=== PATIENT | male | born 1980 | race American Indian/Alaskan Native ===

== ENCOUNTER 2016-08-11 14:28 | Emergency (ER) | payer MEDICAID ==
[2016-08-11 15:12] VITALS: BP 134/81
[2016-08-11 15:30] LABS: Basophils % (Auto) 1.1 % (0.0-1.8); Eosinophils % (Auto) 9.3 % (0.0-4.3); Hematocrit 39.3 % (35.5-45.6); Hemoglobin 12.8 gm/dl (11.8-15.2); Mean Corpuscular HGB Conc 32 % (32-34); Mean Corpuscular Hemoglobin 28 pg (28-32); Mean Corpuscular Volume 86 fl (84-94); Platelet Count 239 K/mm3 (140-440); Red Blood Count 4.59 M/mm3 (3.65-5.03); Red Cell Distribution Width 14.3 % (13.2-15.2); White Blood Count 4.2 K/mm3 (4.5-11.0)
[2016-08-11 15:40] LABS: Anion Gap 17 mmol/L; BUN/Creatinine Ratio 9.16; Blood Urea Nitrogen 11 mg/dL (9-20); Calcium 8.5 mg/dL (8.4-10.2); Carbon Dioxide 22 mmol/L (22-30); Chloride 99.7 mmol/L (98-107); Glucose 93 mg/dL (75-100); Potassium 4.1 mmol/L (3.6-5.0); Sodium 135 mmol/L (137-145)
--- NOTE | 2016-08-15 16:02 | ED Elopement Review ---
ED Pt Elopement review - Results review Lab results: Laboratory Tests 08/11/16 08/11/16 08/11/16 15:13 15:13 15:13 WBC 4.2 L RBC 4.59 Hgb 12.8 Hct 39.3 MCV 86 MCH 28 MCHC 32 RDW 14.3 Plt Count 239 Lymph % (Auto) 21.5 [place] % (Auto) 10.2 H Eos % (Auto) 9.3 H Baso % (Auto) 1.1 Lymph # 0.9 L [place] # 0.4 Eos # 0.4 Baso # 0.0 Seg Neutrophils % 57.9 Seg Neutrophils # 2.5 Sodium 135 L Potassium 4.1 Chloride 99.7 Carbon Dioxide 22 Anion Gap 17 BUN 11 Creatinine 1.2 Estimated GFR > 60 BUN/Creatinine Ratio 9.16 Glucose 93 Calcium 8.5 Plasma/Serum Alcohol < 0.01 - Call Back decision Pt Call Back Decision: No action required
== END 2016-08-11 20:05 | disposition left against medical advice (07) ==
LOC: ED 14:28
DX: R21 Rash and other nonspecific skin eruption (principal); F25.9 Schizoaffective disorder, unspecified; F17.200 Nicotine dependence, unspecified, uncomplicated; Z91.02 Food additives allergy status; Z53.21 Procedure and treatment not carried out due to patient leaving prior to being seen by health care provider
CPT/HCPCS: 36415; 80048; 85025; G0480; 80320

== ENCOUNTER 2016-08-12 05:14 | Emergency (ER) | payer MEDICAID ==
[2016-08-12 07:51] LABS: Basophils % (Auto) 1.1 % (0.0-1.8); Eosinophils % (Auto) 9.7 % (0.0-4.3); Hematocrit 38.6 % (35.5-45.6); Hemoglobin 12.6 gm/dl (11.8-15.2); Mean Corpuscular HGB Conc 33 % (32-34); Mean Corpuscular Hemoglobin 28 pg (28-32); Mean Corpuscular Volume 86 fl (84-94); Platelet Count 229 K/mm3 (140-440); Red Blood Count 4.47 M/mm3 (3.65-5.03); Red Cell Distribution Width 14.5 % (13.2-15.2); White Blood Count 5.4 K/mm3 (4.5-11.0)
[2016-08-12 08:03] LABS: Anion Gap 15 mmol/L; Blood Urea Nitrogen 13 mg/dL (9-20); Calcium 8.8 mg/dL (8.4-10.2); Carbon Dioxide 26 mmol/L (22-30); Chloride 102.7 mmol/L (98-107); Glucose 100 mg/dL (75-100); Potassium 3.9 mmol/L (3.6-5.0); Sodium 140 mmol/L (137-145)
--- NOTE | 2016-08-12 11:29 | Emergency Department Report ---
ED General Adult HPI - General Chief complaint: Psych Stated complaint: MH EVAL Time Seen by Provider: 08/12/16 11:28 Source: patient Mode of arrival: Ambulatory Limitations: No Limitations - Related Data Home Medications Medication Instructions Recorded Confirmed Last Taken Citalopram Hydrobromide [celeXA] 20 mg PO DAILY 07/06/14 07/06/14 Unknown Olanzapine [ZyPREXA] 30 mg PO QHS 07/06/14 07/06/14 Unknown hydrOXYzine PAMOATE [Vistaril] 25 mg PO TID 07/06/14 07/06/14 Unknown Allergies Allergy/AdvReac Type Severity Reaction Status Date / Time cheese Allergy Vomiting Uncoded 08/11/16 15:12 ED Review of Systems ROS: Stated complaint: MH EVAL Other details as noted in HPI ED Past Medical Hx - Past Medical History Hx Psychiatric Treatment: Yes (schizo-affective disorder) Hx HIV: Yes (pt unsure- told he has HIV but not sure.) - Surgical History Past Surgical History?: No - Social History Smoking Status: Current Every Day Smoker Substance Use Type: None - Medications Home Medications: Home Medications Medication Instructions Recorded Confirmed Last Taken Type Citalopram Hydrobromide [celeXA] 20 mg PO DAILY 07/06/14 07/06/14 Unknown History Olanzapine [ZyPREXA] 30 mg PO QHS 07/06/14 07/06/14 Unknown History hydrOXYzine PAMOATE [Vistaril] 25 mg PO TID 07/06/14 07/06/14 Unknown History ED Physical Exam - General Limitations: No Limitations ED Course Vital Signs 08/12/16 07:16 Temperature 97.7 F Pulse Rate 87 Respiratory 16 Rate Blood Pressure 111/70 O2 Sat by Pulse 97 Oximetry ED Medical Decision Making - Lab Data Result diagrams: 08/12/16 07:23 08/12/16 07:23 Critical care attestation.: If time is entered above; I have spent that time in minutes in the direct care of this critically ill patient, excluding procedure time. ED Disposition Condition: Stable Referrals: PRIMARY CARE, [Primary Care Provider] - 3-5 Days
[2016-08-12] MEDS ORDERED: NACL 0.9% 1000 ML 1,000 ML IV ONE (14:22)
--- NOTE | 2016-08-12 14:36 | Emergency Department Report ---
HPI - General Chief Complaint: Psych Time Seen by Provider: 08/12/16 11:28 - HPI HPI: This is a 35-year-old Afro-[place] male presents to the emergency Department through triage with the complaint of needing a refill of his psychiatric medications. He allegedly told the triage nurse that he was having auditory hallucinations but denies any suicidal or homicidal ideations. However he was falling asleep mostly during triage. When I saw the patient back in the main emergency department he is extremely sleepy. He has arousable to verbal and tactile stimuli but can only concentrate for a few words before he falls back asleep and therefore is a poor historian. He is mentioning that he needs a cream for his feet. He was able to tell me that he lives in a nearby jail and has a history of schizoaffective disorder. ED Past Medical Hx - Past Medical History Hx Psychiatric Treatment: Yes (schizo-affective disorder) Hx HIV: Yes (pt unsure- told he has HIV but not sure.) - Surgical History Past Surgical History?: No - Social History Smoking Status: Current Every Day Smoker Substance Use Type: None - Medications Home Medications: Home Medications Medication Instructions Recorded Confirmed Last Taken Type Citalopram Hydrobromide [celeXA] 20 mg PO DAILY 07/06/14 07/06/14 Unknown History Olanzapine [ZyPREXA] 30 mg PO QHS 07/06/14 07/06/14 Unknown History hydrOXYzine PAMOATE [Vistaril] 25 mg PO TID 07/06/14 07/06/14 Unknown History ED Review of Systems ROS: Stated complaint: EVAL Other details as noted in HPI Comment: All other systems reviewed and negative Constitutional: malaise. denies: chills, fever Eyes: denies: eye pain, eye discharge, vision change ENT: denies: ear pain, throat pain Respiratory: denies: cough, shortness of breath, wheezing Cardiovascular: denies: chest pain, palpitations Gastrointestinal: denies: abdominal pain, nausea, diarrhea Genitourinary: denies: urgency, dysuria Musculoskeletal: denies: back pain, joint swelling, arthralgia Skin: denies: rash, lesions Neurological: denies: headache, numbness Psychiatric: auditory hallucinations. denies: suicidal thoughts Physical Exam - Physical Exam Vital Signs: Vital Signs 08/12/16 07:16 Temperature 97.7 F Pulse Rate 87 Respiratory 16 Rate Blood Pressure 111/70 O2 Sat by Pulse 97 Oximetry Physical Exam: GENERAL: Patient is a disheveled appearance. HEENT: Normocephalic. Atraumatic. Extraocular motions are intact. Patient has moist mucous membranes. Pupils equal reactive to light bilaterally. NECK: Supple. Trachea is midline. CHEST/LUNGS: Clear to auscultation. There is no respiratory distress noted. HEART/CARDIOVASCULAR: Regular. There is no tachycardia. There is no gallop rub or murmur. ABDOMEN: Abdomen is soft, nontender. Patient has normal bowel sounds. There is no abdominal distention. SKIN: The patient has some healing abrasions to the dorsum of his feet that appear consistent with the skin rubbing against his shoes and socks. There is no obvious cellulitis, signs of infection, bleeding, weeping or drainage. NEURO: The patient is very fatigued. If he is constantly stimulated verbally or tactile, and the patient will answer questions and the answers he gives appear appropriate but he cannot go more than a few words without falling asleep again. MUSCULOSKELETAL: There is no tenderness or deformity. There is no evidence of acute injury. ED Course Vital Signs 08/12/16 07:16 Temperature 97.7 F Pulse Rate 87 Respiratory 16 Rate Blood Pressure 111/70 O2 Sat by Pulse 97 Oximetry - Reevaluation(s) Reevaluation #1: I went to reevaluate the patient and he is much more awake and alert. I do not know asked why he was so fatigued at first but now he is awake and asking for food. He is AAO 3. CT of the head was canceled as he does not want it done and appears appropriate. He is agreed to allow IV fluid resuscitation and we will wait for his lab results. 08/12/16 15:41 Reevaluation #2: Patient was able to give more information at this point about the reason he came in to the emergency department. With his history of schizoaffective disorder he is been having auditory and visual hallucinations. He says that the car towards that he years are "driving me crazy" and that it is driving him into a rage. He also says that when he sees car headlights that they appear to be monsters to him that are coming to attack him. The patient does not have any suicidal or homicidal ideations, the patient is not been taking his medications and does not appear therapeutic at believe the patient would benefit from inpatient psychiatric treatment for stabilization of his psychosis. 08/12/16 15:51 ED Medical Decision Making - Lab Data Result diagrams: 08/12/16 07:23 08/12/16 07:23 - Medical Decision Making 35-year-old male who presents to the emergency department for a mental health evaluation. Through triage at appear that the patient was just looking for a refill of his medication. However during my history and physical the patient was barely able to keep his eyes open. This concerned me as to some type of altered mental status. Further labs are ordered and a CT of the head was ordered as well. Blood alcohol level is negative. An IV was placed and IV fluid resuscitation was started. Shortly after this, the patient became more awake and alert. CT of the head was then canceled. So far the labs are unremarkable and do not show any signs of infection, electrolyte abnormalities, renal insufficiency or glucose abnormalities. We are currently waiting for the urine sample so it can be tested for urine drug screen and urinary tract infection. The patient says that he lives in a jail but that also says that he has not eaten in the past 5 days. He says that this jail exists where people just pay rent but there is no other further support. The crisis therapist was able to talk with the patient as well and the patient became more forthcoming and says that he has been having increased auditory and visual hallucinations secondary to medication noncompliance. The auditory hallucinations are causing anger issues as the sounds of the car horns are bothering him. The visual hallucinations are headlightes that appear to be monster like figures that can attack him. The patient does not have any suicidal or homicidal ideations, I still feel that the patient might be a candidate to be a 1013. First of all, the patient says that he has not been eating and past 5 days and therefore he is not feeling all the activities of daily living that are necessary. Secondly, patient is having these hallucinations that sound like acute psychosis. The patient definitely appears more awake and has stable vitals. I feel that he is medically clear for psychiatric placement. - Differential Diagnosis schizophrenia, schizoaffective disorder, bipolar disorder, substance abuse Critical Care Time: No Critical care attestation.: If time is entered above; I have spent that time in minutes in the direct care of this critically ill patient, excluding procedure time. ED Disposition Clinical Impression: History of schizoaffective disorder, Auditory hallucinations, Visual hallucinations Psychosis Qualifiers: Psychosis type: unspecified psychosis type Qualified Code(s): F29 - Unspecified psychosis not due to a substance or known physiological condition Disposition: DC/TX PSY HOSP/PSY UNIT Is pt being admited?: No Condition: Stable Instructions: Schizoaffective Disorder (ED) Additional Instructions: Please follow-up with your psychiatrist as previously scheduled. Return to the emergency department with any worsening of her symptoms or any acute distress. Referrals: PRIMARY CARE, [Primary Care Provider] - 3-5 Days
[2016-08-12 15:54] LABS: Creatine Kinase 314 units/L (55-170)
[2016-08-12 16:36] LABS: Urine Drugs of Abuse Note Disclamer
[2016-08-12 16:47] LABS: Bilirubin,Urine NEG (Negative); Blood,Urine NEG (Negative); Ketones,Urine NEG (Negative); Leukocyte Esterase,Urine NEG (Negative); Mucus,Urine FEW /HPF; Nitrite,Urine NEG (Negative); Protein,Urine <15 mg/dL mg/dL (Negative); RBC,Urine < 1.0 /HPF (0.0-6.0); Urobilinogen,Urine < 2.0 mg/dL (<2.0); WBC,Urine < 1.0 /HPF (0.0-6.0)
[2016-08-13] MEDS ORDERED: TYLENOL ONE (06:34)
--- NOTE | 2016-08-13 13:57 | Consultation ---
History of Present Illness - Reason for Consult Consult date: 08/13/16 Reason for consult: psychiatric evaluation, psychosis - Chief Complaint Chief complaint: "What is happening" The record indicates a history of schizoaffective disorder. The following was recorded by the ER physician: He says that the car towards that he years are "driving me crazy" and that it is driving him into a rage. He also says that when he sees car headlights that they appear to be monsters to him that are coming to attack him. The patient does not have any suicidal or homicidal ideations, the patient has not been taking his medications and does not appear therapeutic. The patient would benefit from inpatient psychiatric treatment for stabilization of his psychosis. At the time of interview I was unable to obtain psychiatric history or current symptoms. He was sleeping and awoke only to ask what is happening and where he will go. Medications and Allergies Allergies Allergy/AdvReac Type Severity Reaction Status Date / Time cheese Allergy Vomiting Uncoded 08/11/16 15:12 Home Medications Medication Instructions Recorded Confirmed Last Taken Type Citalopram Hydrobromide [celeXA] 20 mg PO DAILY 07/06/14 07/06/14 Unknown History Olanzapine [ZyPREXA] 30 mg PO QHS 07/06/14 07/06/14 Unknown History hydrOXYzine PAMOATE [Vistaril] 25 mg PO TID 07/06/14 07/06/14 Unknown History Past psychiatric history - Past Medical History Past Medical History: other (questionable HIV) - past Psychiatric treatment and history psychiatric treatment history: schizoaffective disorder, bipolar type - Social History Social history: other (drug screen positive for cocaine. Lives in senior living) Mental Status Exam - Vital signs Last Vital Signs Temp 98.1 F 08/13/16 08:55 Pulse 71 08/13/16 08:55 Resp 16 08/13/16 08:55 BP 123/72 08/13/16 08:55 Pulse Ox 96 08/13/16 08:55 - Exam Narrative exam: unable to assess thought process , memory, or sleep. His meal tray is empty ( appears to be eaten). Orientation: place, person Mood: other (unable to assess) Thought content: other (unable to assess) Perceptions: visual (per the record), auditory (per the record) Speech: minimal response Concentration: other (sleeping) Level of consciousness: other (sleeping) Results Result Diagrams: 08/12/16 07:23 08/12/16 07:23 Abnormal lab results 08/12/16 08/12/16 Range/Units 15:25 15:25 Total Creatine Kinase 314 H (55-170) units/L Salicylates < 0.3 L (2.8-20.0) mg/dL All other labs normal. Assessment and Plan Assessment and plan: Impression: Possible psychosis Non compliance with medication Schizoaffective disorder, bipolar type by history Cocaine use Recommendations: Vistaril 50mg ordered for tonight. Start Zyprexa 5mg hs for reported psychotic symptoms. Proceed with 1013 and will reevaluate in 24 hours.
[2016-08-13 18:36] VITALS: BP 136/89
[2016-08-13] MEDS ORDERED: VISTARIL PO SCH (22:00)
== END 2016-08-13 18:15 ==
LOC: EEVIPCON 05:14 → ED 05:14
DX: R44.0 Auditory hallucinations (principal); R44.1 Visual hallucinations; F29 Unspecified psychosis not due to a substance or known physiological condition; F25.9 Schizoaffective disorder, unspecified; F17.200 Nicotine dependence, unspecified, uncomplicated
CPT/HCPCS: 36415; 80048; 80307; 81001; 82140; 82550; 84443; 84484; 85025; 96360; 99285; G0480; J7030; 80320

== ENCOUNTER 2016-09-03 13:32 | Emergency (ER) | payer MEDICAID | END 2016-09-03 14:23 | disposition left against medical advice (07) | LOC: ED 13:32 | DX: T14.8 Other injury of unspecified body region (principal); Z53.21 Procedure and treatment not carried out due to patient leaving prior to being seen by health care provider; W57.XXXA Bitten or stung by nonvenomous insect and other nonvenomous arthropods, initial encounter; Y93.89 Activity, other specified; Y99.8 Other external cause status; Y92.89 Other specified places as the place of occurrence of the external cause ==

== ENCOUNTER 2016-09-07 16:05 | Emergency (ER) | payer MEDICAID ==
[2016-09-07 17:04] LABS: Urine Drugs of Abuse Note Disclamer
[2016-09-07 17:09] LABS: Anion Gap 19 mmol/L; Blood Urea Nitrogen 11 mg/dL (9-20); Calcium 9.1 mg/dL (8.4-10.2); Carbon Dioxide 24 mmol/L (22-30); Chloride 100.5 mmol/L (98-107); Glucose 109 mg/dL (75-100); Potassium 4.1 mmol/L (3.6-5.0); Sodium 139 mmol/L (137-145)
[2016-09-07 17:12] LABS: Hematocrit 37.1 % (35.5-45.6); Hemoglobin 12.1 gm/dl (11.8-15.2); Mean Corpuscular HGB Conc 33 % (32-34); Mean Corpuscular Hemoglobin 28 pg (28-32); Mean Corpuscular Volume 84 fl (84-94); Platelet Count 270 K/mm3 (140-440); Red Cell Distribution Width 14.2 % (13.2-15.2); White Blood Count 6.1 K/mm3 (4.5-11.0)
[2016-09-07 17:19] LABS: Bilirubin,Urine NEG (Negative); Blood,Urine NEG (Negative); Ketones,Urine NEG (Negative); Leukocyte Esterase,Urine NEG (Negative); Nitrite,Urine NEG (Negative); Protein,Urine <15 mg/dL mg/dL (Negative); Urobilinogen,Urine < 2.0 mg/dL (<2.0)
[2016-09-07 17:20] LABS: Mucus,Urine FEW /HPF
[2016-09-08] MEDS ORDERED: BACTRIM DS PO ONE ×2 (03:43→03:56)
[2016-09-08] MEDS ORDERED: TRIPLE ANTIBIOTIC TP ONE (04:22)
[2016-09-08] MEDS ORDERED: LOTRIMIN TP ONE (04:52)
--- NOTE | 2016-09-08 04:53 | Emergency Department Report ---
ED Psych HPI - General Chief Complaint: Psych Stated Complaint: LEG PAIN/SCHIZOPHERINA Time Seen by Provider: 09/08/16 03:31 Source: patient Mode of arrival: Ambulatory - History of Present Illness Initial Comments: 62-uzot-elw-year-old male with a past medical history of schizophrenia presents to the hospital complaining of needing more medication. Patient is been compliant with his once a month InVega shots. He states he needs more medication because he is having hallucinations. Denies suicidal or homicidal ideation. Patient has rash and sores to bilateral lower extremities which she thinks has been present for approximately 2 months. 09/22 bilateral leg pain reported it worse with palpation. Unable to characterize pain. - Related Data Home Medications Medication Instructions Recorded Confirmed Last Taken Citalopram Hydrobromide [celeXA] 20 mg PO DAILY 07/06/14 07/06/14 Unknown Olanzapine [ZyPREXA] 30 mg PO QHS 07/06/14 07/06/14 Unknown hydrOXYzine PAMOATE [Vistaril] 25 mg PO TID 07/06/14 07/06/14 Unknown Previous Rx's Medication Instructions Recorded Last Taken Type Clotrimazole 1% [Lotrimin 1%] 1 applic TP BID #1 tube 09/08/16 Unknown Rx Sulfamethoxazole/Trimethoprim 1 each PO Q12HR #20 tablet 09/08/16 Unknown Rx [Bactrim DS TAB] Allergies Allergy/AdvReac Type Severity Reaction Status Date / Time cheese Allergy Vomiting Uncoded 08/11/16 15:12 ED Review of Systems ROS: Stated complaint: LEG PAIN/SCHIZOPHERINA Other details as noted in HPI Comment: All other systems reviewed and negative Other: Constitutional: No fevers chills Eyes: No eye pain visual changes ENT: No ear pain or throat pain Neck: Denies pain Respiratory: Denies cough wheezing shortness of breath Cardiovascular: Denies chest pain, palpitations, syncope GI: Denies abdominal pain, nausea, vomiting, diarrhea : Denies dysuria Musculoskeletal: Denies back pain, joint swelling Skin: as per hpi Neurologic: Denies headache, numbness, weakness Psychiatric: Denies suicidal ideation. + hallucinations ED Past Medical Hx - Past Medical History Hx Psychiatric Treatment: Yes (schizo-affective disorder) Hx HIV: Yes (pt unsure- told he has HIV but not sure.) - Social History Smoking Status: Current Every Day Smoker Substance Use Type: None, Marijuana - Medications Home Medications: Home Medications Medication Instructions Recorded Confirmed Last Taken Type Citalopram Hydrobromide [celeXA] 20 mg PO DAILY 07/06/14 07/06/14 Unknown History Olanzapine [ZyPREXA] 30 mg PO QHS 07/06/14 07/06/14 Unknown History hydrOXYzine PAMOATE [Vistaril] 25 mg PO TID 07/06/14 07/06/14 Unknown History Clotrimazole 1% [Lotrimin 1%] 1 applic TP BID #1 tube 09/08/16 Unknown Rx Sulfamethoxazole/Trimethoprim 1 each PO Q12HR #20 tablet 09/08/16 Unknown Rx [Bactrim DS TAB] ED Physical Exam - General Limitations: No Limitations - Other Other exam information: General: No limitations, patient is alert in no acute distress Head exam: Atraumatic, normocephalic Eyes exam: Normal appearance ENT: Moist mucous membrane, normal oropharynx Neck exam: Normal inspection, full range of motion, no meningismus nontender Respiratory exam: Clear to auscultation bilateral, no wheezes, rales, crackles Cardiovascular: Normal rate and rhythm, normal heart sounds Abdomen: Soft, nondistended, and nontender, with normal bowel sounds, no rebound, or guarding Extremity: Mild lower extremity edema. Full range of motion. Patient has a generalized scaly rash patchy and below the knee. Some mild extension above the knee. Erythema warmth at the bilateral feet. 2+ DP pulses. Back: Normal Inspection, full range of motion, no tenderness Neurologic: Alert, oriented x3, cranial nerves intact, no motor or sensory deficit Psychiatric: normal affect, normal mood Skin: See extremity exam ED Course Vital Signs 09/07/16 09/08/16 09/08/16 16:09 01:22 12:00 Temperature 97.9 F 98.1 F Pulse Rate 90 74 69 Respiratory 18 18 18 Rate Blood Pressure 128/80 124/84 Blood Pressure 124/77 [Left] O2 Sat by Pulse 98 99 96 Oximetry - Reevaluation(s) Reevaluation #1: 09/08/16 05:04 Bactrim and topical anti-fungal cream ordered - Consultations Consultation #1: 09/09/16 05:17 pt was seen by and agree no need for 1013. pt was d/cely home ED Medical Decision Making - Lab Data Result diagrams: 09/07/16 16:17 09/07/16 16:17 Lab Results 09/07/16 09/07/16 09/07/16 Range/Units 16:17 16:17 16:28 WBC 6.1 (4.5-11.0) K/mm3 RBC 4.40 (3.65-5.03) M/mm3 Hgb 12.1 (11.8-15.2) gm/dl Hct 37.1 (35.5-45.6) % MCV 84 (84-94) fl MCH 28 (28-32) pg MCHC 33 (32-34) % RDW 14.2 (13.2-15.2) % Plt Count 270 (140-440) K/mm3 Sodium 139 (137-145) mmol/L Potassium 4.1 (3.6-5.0) mmol/L Chloride 100.5 (98-107) mmol/L Carbon Dioxide 24 (22-30) mmol/L Anion Gap 19 mmol/L BUN 11 (9-20) mg/dL Creatinine 1.1 (0.8-1.5) mg/dL Estimated GFR > 60 ml/min BUN/Creatinine Ratio 10.00 % Glucose 109 H (75-100) mg/dL Calcium 9.1 (8.4-10.2) mg/dL Total Creatine Kinase (55-170) units/L Urine Color Yellow (Yellow) Urine Turbidity Clear (Clear) Urine pH 5.0 (5.0-7.0) Ur Specific [place] 1.017 (1.003-1.030) Urine Protein <15 mg/dl (Negative) mg/dL Urine Glucose (UA) Neg (Negative) mg/dL Urine Ketones Neg (Negative) mg/dL Urine Blood Neg (Negative) Urine Nitrite Neg (Negative) Urine Bilirubin Neg (Negative) Urine Urobilinogen < 2.0 (<2.0) mg/dL Ur Leukocyte Esterase Neg (Negative) Urine WBC (Auto) 1.0 (0.0-6.0) /HPF Urine RBC (Auto) 4.0 (0.0-6.0) /HPF U Epithel Cells (Auto) 1.0 (0-13.0) /HPF Urine Mucus Few /HPF Urine Opiates Screen Urine Methadone Screen Ur Barbiturates Screen Ur Phencyclidine Scrn Ur Amphetamines Screen U Benzodiazepines Scrn Urine Cocaine Screen U Marijuana (THC) Screen Drugs of Abuse Note 09/07/16 09/08/16 Range/Units 16:28 03:53 WBC (4.5-11.0) K/mm3 RBC (3.65-5.03) M/mm3 Hgb (11.8-15.2) gm/dl Hct (35.5-45.6) % MCV (84-94) fl MCH (28-32) pg MCHC (32-34) % RDW (13.2-15.2) % Plt Count (140-440) K/mm3 Sodium (137-145) mmol/L Potassium (3.6-5.0) mmol/L Chloride (98-107) mmol/L Carbon Dioxide (22-30) mmol/L Anion Gap mmol/L BUN (9-20) mg/dL Creatinine (0.8-1.5) mg/dL Estimated GFR ml/min BUN/Creatinine Ratio % Glucose (75-100) mg/dL Calcium (8.4-10.2) mg/dL Total Creatine Kinase 348 H (55-170) units/L Urine Color (Yellow) Urine Turbidity (Clear) Urine pH (5.0-7.0) Ur Specific [place] (1.003-1.030) Urine Protein (Negative) mg/dL Urine Glucose (UA) (Negative) mg/dL Urine Ketones (Negative) mg/dL Urine Blood (Negative) Urine Nitrite (Negative) Urine Bilirubin (Negative) Urine Urobilinogen (<2.0) mg/dL Ur Leukocyte Esterase (Negative) Urine WBC (Auto) (0.0-6.0) /HPF Urine RBC (Auto) (0.0-6.0) /HPF U Epithel Cells (Auto) (0-13.0) /HPF Urine Mucus /HPF Urine Opiates Screen Presumptive negative Urine Methadone Screen Presumptive negative Ur Barbiturates Screen Presumptive positive Ur Phencyclidine Scrn Presumptive negative Ur Amphetamines Screen Presumptive negative U Benzodiazepines Scrn Presumptive negative Urine Cocaine Screen Presumptive positive U Marijuana (THC) Screen Presumptive negative Drugs of Abuse Note Disclamer - Radiology Data Radiology results: image reviewed interpreted by me: Right and left foot x-ray without any acute abnormality. No radiopaque foreign body. - Medical Decision Making Patient admits to marijuana use and maybe it was recently laced with cocaine explaining positive UDS results. However, patient's marijuana test was negative and cocaine is positive. Patient denies suicidal or homicidal ideation however, I think he would benefit from psychiatric evaluation. I suspect the patient's rash is a combination of cellulitis and fungal infection. Patient does not have fever or leukocytosis and therefore the candidate for outpatient treatment. I have initiated Bactrim and anti-fungal cream. Patient need to keep his feet and legs dry - Differential Diagnosis suicidal, homicidal, psychosis, schizophrenia, noncompliance, cellulitis, Critical Care Time: No Critical care attestation.: If time is entered above; I have spent that time in minutes in the direct care of this critically ill patient, excluding procedure time. ED Disposition Clinical Impression: Schizophrenia, Psychosis, Cellulitis of both feet, Fungal infection, Cocaine abuse Disposition: TO HOME OR SELFCARE Is pt being admited?: No Does the pt Need Aspirin: No Condition: Stable Instructions: Tinea Pedis (ED), Cellulitis (ED), Schizophrenia (ED) Prescriptions: Clotrimazole 1% [Lotrimin 1%] 1 applic TP BID #1 tube Sulfamethoxazole/Trimethoprim [Bactrim DS TAB] 1 each PO Q12HR #20 tablet Referrals: PRIMARY CARE,MD [Primary Care Provider] - 3-5 Days Time of Disposition: 17:00 (d/cely 09/08/16)
--- NOTE | 2016-09-08 08:55 | XRay Report ---
Left foot: Swollen foot/possible foreign body. There is a mildly swollen but there is no obvious soft tissue gas, foreign body or underlying bone or joint abnormality. Impression: Nonspecific swelling. Right foot: Swelling, right toe pain. There is mild swelling over the dorsum of the foot. No foreign body and no laceration identified. The bony and joint structures appear unremarkable. Impression: Nonspecific swelling.
[2016-09-08] MEDS ORDERED: LOTRIMIN TP SCH (10:00)
[2016-09-08 13:33] VITALS: BP 124/77
--- NOTE | 2016-09-08 14:42 | Consultation ---
History of Present Illness - Reason for Consult Consult date: 09/08/16 Reason for consult: Mental Health Evaluation Requesting physician: SARAH SIFUENTES - Chief Complaint Chief complaint: "I need a place to stay" - History of Present Psychiatric Illness [id number]-year-old male with a past medical history of schizophrenia presents to the hospital complaining of needing more medication. Today patient is calm and cooperative during the assessment. He stated having problems with other occupants at his half-way. He stated spending money on hotels to stay away from the half-way. He stated being "broke and hungry" and that's why he came to the hospital. Patient would like another residence at this time. He denies SI /HI's and AVH's. He stated that he hear voices in the past. He was under the assumption that he will take PO medication along with getting the Invega injection monthly for Schizophrenia. I explained to him how the Invega injection work. He stated that he received the Invega injection last week at [facility] ([facility]). He admit to smoking marijuana, but his UDS positive for cocaine and barbiturates. He stated that someone must have laced his "weed." He denies alcohol consumption (etoh). Medications and Allergies Allergies Allergy/AdvReac Type Severity Reaction Status Date / Time cheese Allergy Vomiting Uncoded 08/11/16 15:12 Home Medications Medication Instructions Recorded Confirmed Last Taken Type Citalopram Hydrobromide [celeXA] 20 mg PO DAILY 07/06/14 07/06/14 Unknown History Olanzapine [ZyPREXA] 30 mg PO QHS 07/06/14 07/06/14 Unknown History hydrOXYzine PAMOATE [Vistaril] 25 mg PO TID 07/06/14 07/06/14 Unknown History Clotrimazole 1% [Lotrimin 1%] 1 applic TP BID #1 tube 09/08/16 Unknown Rx Sulfamethoxazole/Trimethoprim 1 each PO Q12HR #20 tablet 09/08/16 Unknown Rx [Bactrim DS TAB] Active Meds: Active Medications Clotrimazole (Lotrimin) 1 applic TP BID [facility], 1928–1983 Last Admin: 09/08/16 12:31 Dose: 1 applic Trimethoprim/Sulfamethoxazole (Bactrim Ds) 1 each PO Q12HR [facility], [facility]–1983 Past psychiatric history - Past Medical History Past Medical History: other (Patient stated that he maybe HIV+) Past Surgical History: No surgical history - past Psychiatric treatment and history Psych: Bipolar, Schizophrenia psychiatric treatment history: Patient is seen at [facility] ([facility]). He stated that his father has Schizophrenia. - Social History Social history: other (Resides in a half-way) Mental Status Exam - Vital signs Last Vital Signs Temp 98.1 F 09/08/16 01:22 Pulse 69 09/08/16 12:00 Resp 18 09/08/16 12:00 BP 124/77 09/08/16 12:00 Pulse Ox 96 09/08/16 12:00 - Exam Narrative exam: ROS (-) psychosis MSE: Appearance: calm, cooperative Behavior: good eye contact Speech: regular rate and tone Mood: "okay" Affect: congruent to mood Thought Process: linear Thought Content: denies SI/HI's and AVH's Motor Activity: ambulatory Cognition: A/Ox 3 Insight: fair Judgment: fair Results Result Diagrams: 09/07/16 16:17 09/07/16 16:17 Abnormal lab results 09/07/16 09/08/16 Range/Units 16:17 03:53 Glucose 109 H (75-100) mg/dL Total Creatine Kinase 348 H (55-170) units/L All other labs normal. Assessment and Plan Assessment and plan: Impression: Historical Dx Schizophrenia. Today patient is calm and cooperative during the assessment. He stated having problems with other occupants at his half-way. He stated spending money on hotels to stay away from the half-way. He stated being "broke and hungry" and that's why he came to the hospital. He denies SI/HI's and AVH's. Patient is no threat to self or others. Recommendation/Plan: Patient can follow-up with his outpatient services with [facility] (Invega IM monthly).
[2016-09-08] MEDS ORDERED: BACTRIM DS PO SCH (22:00)
== END 2016-09-08 17:06 | disposition home or self-care (01) ==
LOC: ED 16:05
DX: F20.9 Schizophrenia, unspecified (principal); L03.116 Cellulitis of left lower limb; L03.115 Cellulitis of right lower limb; F29 Unspecified psychosis not due to a substance or known physiological condition; B49 Unspecified mycosis; F14.10 Cocaine abuse, uncomplicated; F12.10 Cannabis abuse, uncomplicated; F17.200 Nicotine dependence, unspecified, uncomplicated
CPT/HCPCS: 36415; 80048; 80307; 81001; 82550; 85027; 99284; A6250

== ENCOUNTER 2016-09-13 19:36 | Emergency (ER) | payer MEDICAID | END 2016-09-13 20:47 | disposition left against medical advice (07) | LOC: ED 19:36 | DX: Z76.0 Encounter for issue of repeat prescription (principal); Z91.011 Allergy to milk products; Z53.21 Procedure and treatment not carried out due to patient leaving prior to being seen by health care provider ==